=== PATIENT | male | born 1955 | race Caucasian/White ===

== ENCOUNTER 2024-01-13 07:17 | Day surgery (SDC) | payer MEDICARE, BC ==
[2024-01-13] MEDS: Lactated Ringers 1,000 ML IV SCH (07:37)
[2024-01-13] MEDS ORDERED: Ketamine 200 MG/20 ML MDV ONE (08:06)
[2024-01-13] MEDS ORDERED: fentaNYL 50 MCG/ML SDV ONE (08:06)
[2024-01-13] MEDS ORDERED: Propofol 200 MG/20 ML SDV ONE (08:06)
== END 2024-01-13 09:12 | disposition home or self-care (01) ==
LOC: CC.SDS 07:17
PROVIDERS: ATTEND Family Medicine
DX: Z12.11 Encounter for screening for malignant neoplasm of colon (principal); K57.30 Diverticulosis of large intestine without perforation or abscess without bleeding; N40.1 Benign prostatic hyperplasia with lower urinary tract symptoms; E78.5 Hyperlipidemia, unspecified; E11.9 Type 2 diabetes mellitus without complications; G47.30 Sleep apnea, unspecified; K21.9 Gastro-esophageal reflux disease without esophagitis; Z79.82 Long term (current) use of aspirin; Z79.85 Long-term (current) use of injectable non-insulin antidiabetic drugs; Z79.899 Other long term (current) drug therapy
CPT/HCPCS: J2704; J3010; J3490; J7120

== ENCOUNTER 2024-04-20 15:59 | Emergency (ER) | payer MEDICARE, BC ==
[2024-04-20] MEDS: Aspirin 81 MG Tab.Chew PO ONE (16:16)
[2024-04-20 16:18] LABS: BASOPHILS ABSOLUTE AUTO 0.03 10^3/uL (0.00-0.50); BASOPHILS PERCENT AUTO 0.3 % (0-1); EOSINOPHILS ABSOLUTE AUTO 0.17 10^3/uL (0.00-1.50); EOSINOPHILS PERCENT AUTO 1.8 % (0-6); HEMATOCRIT 47.8 % (42.0-52.0); HEMOGLOBIN 16.5 g/dL (14.0-18.0); IMMATURE GRAN ABSOLUTE AUTO 0.05 10^3/uL (0.00-0.49); IMMATURE GRAN PERCENT AUTO 0.5 % (0.0-4.9); LYMPHOCYTES ABSOLUTE AUTO 2.71 10^3/uL (0.60-5.00); LYMPHOCYTES PERCENT AUTO 28.9 % (24-44); MEAN CORPUSCULAR HEMOGLOBIN 30.8 pg (27.0-32.0); MEAN CORPUSCULAR HGB CONC 34.5 g/dL (32.0-36.0); MEAN CORPUSCULAR VOLUME 89.3 fL (83.0-97.0); MONOCYTES ABSOLUTE AUTO 0.68 10^3/uL (0.00-1.50); MONOCYTES PERCENT AUTO 7.3 % (0-10); NEUTROPHILS ABSOLUTE AUTO 5.73 x10^3/uL (1.80-8.00); NEUTROPHILS PERCENT AUTO 61.2 % (41-71); PLATELET COUNT,PLT 248 10^3/uL (150-400); RED BLOOD CELL COUNT 5.35 x10^6/uL (4.50-6.00); WHITE BLOOD CELL COUNT,WBC 9.4 10^3/uL (4.0-11.0)
[2024-04-20 16:30] LABS: INR 1.02 (0.92-1.18); PROTHROMBIN TIME 10.7 SEC (9.3-11.3); PTT,PARTIAL THROMBOPLSTIN TIME 22.3 SEC (20.0-30.0)
[2024-04-20 16:34] LABS: ALANINE AMINOTRANSFERASE,ALT 36 U/L (12-78); ALBUMIN 4.1 g/dL (3.4-5.0); ALKALINE PHOSPHATASE 77 U/L (46-116); ASPARTATE AMNIOTRANSFERASE,AST 16 U/L (15-37); BILIRUBIN TOTAL 0.6 mg/dL (0.0-1.0); BLOOD UREA NITROGEN,BUN 14 mg/dL (7-18); CALCIUM 9.5 mg/dL (8.4-10.1); CARBON DIOXIDE,CO2 29 mmol/L (21-32); CHLORIDE,CL 104 mEq/L (98-106); CREATINE KINASE,CK 58 U/L (35-232); CREATININE 1.1 mg/dL (0.7-1.3); GLUCOSE RANDOM 174 mg/dL (75-99); LACTATE DEHYDROGENASE,LDH 165 U/L (100-190); LIPASE 42 U/L (16-77); MAGNESIUM 1.9 mg/dL (1.8-2.4); POTASSIUM,K 3.9 mEq/L (3.5-5.0); SODIUM,NA 140 mEq/L (136-145)
[2024-04-20 16:35] LABS: ESTIMATED GFR 74 mL/min (>=60)
== END 2024-04-20 19:45 | disposition home or self-care (01) ==
LOC: CC.ED 15:59
DX: R07.89 Other chest pain (principal); K21.9 Gastro-esophageal reflux disease without esophagitis; E11.9 Type 2 diabetes mellitus without complications; Z88.8 Allergy status to other drugs, medicaments and biological substances; Z79.82 Long term (current) use of aspirin; Z79.899 Other long term (current) drug therapy
CPT/HCPCS: 36415; 71045; 80053; 82550; 83615; 83690; 83735; 84484; 85025; 85610; 85730; 93005; 99285; A9270-GY